=== PATIENT | female | born 1995 | race Caucasian/White ===

== ENCOUNTER 2023-05-01 12:42 | Emergency (ER) | payer OTHER, SELFPAY ==
--- NOTE | ~2023-05-01 | XR_ITS ---
EXAMINATION: XR chest 2V DATE: 05/01/2023 13:59 INDICATION: Cough and congestion TECHNIQUE: Frontal and lateral views of the chest are obtained COMPARISON: None available FINDINGS: The lungs are free of acute opacities. No pleural effusion or pneumothorax. The cardiomedia stinal silhouette is normal. The visualized bones and soft tissues are unremarkable. IMPRESSION: 1. No acute cardiopulmonary abnormality. Reviewed, dictated and finalized at location B. ER STOCK GRADER
[2023-05-01 12:54] VITALS: BP 127/83; PULSE 90; RESP 16; TEMP 37.1; O2SAT 100
--- NOTE | 2023-05-01 13:40 | ED.URI ---
HPI - URI/Sore Throat General Chief Complaint: Upper Respiratory Infection Stated Complaint: Chest Congestion Time Seen by Provider: 05/01/23 13:40 Source: patient, RN notes reviewed and old records reviewed Mode of arrival: ambulatory Limitations: no limitations History of Present Illness HPI Narrative: 27-year-old female presents to the [facility] with complaints of chest congestion. Reports negative COVID at home. Symtpoms started Thursday, 5 days ago Onset (ago): day(s) (5) Related Data Home Medications Medication Instructions Recorded Confirmed drospirenone 3 mg-estetrol 14.2 mg See Rx Instructions PO .COMPLEX 11/25/22 05/01/23 (28) tablet (Nextstellis) Allergies Allergy/AdvReac Type Severity Reaction Status Date / Time No Known Allergies Allergy Verified 05/01/23 13:02 Review of Systems Review of Systems: All systems reviewed & are unremarkable except as noted in HPI and below Constitutional: Constitutional: Reports no additional constitutional complaints Eyes: Eyes: Reports no additional eye complaints ENT: Reports system reviewed and no additional complaints, except as documented Cardiovascular: Cardiovascular: Reports no additional cardiovascular complaints, Denies chest pain and Denies dyspnea Respiratory: Respiratory: Reports as per HPI, Reports chest congestion, Reports cough and Reports dyspnea Gastrointestinal: Gastrointestinal: Reports no additional gastrointestinal complaints, Denies abdominal pain, Denies nausea and Denies vomiting Musculoskeletal: Musculoskeletal: Reports no additional musculoskeletal complaints Integumentary/Breasts: Skin/Breast: Reports system reviewed and no additional complaints, except as docu Neurologic: Reports system reviewed and no additional complaints, except as documented Psychiatric: Psychiatric: Reports no additional psychiatric complaints Allergic/Immunologic: Allergic/Immunologic: Reports no additional allergic/immunologic complaints [facility] Past Medical History Medical History Anxiety Depressed Surgical History Surgical History History of breast surgery [place] teeth extracted Family History Family History Mother Hypertension Depression Alcoholic Sibling Asthma Depression Anxiety Father Anxiety Depression Hypertension Grandparent Alcoholic Depression Anxiety Colon cancer Social History Social History Smoking status: Never smoker Alcohol intake: current Drinks per week: 3 Alcohol use details: weekly Substance use: current Substance use type: marijuana Lack of Transportation: No Lack of Food: Never True Current Housing: I Have Housing Concerned About Future Housing: No Difficulty Paying Gas/Electric Bills: No Difficulty Paying for Meds: No Currently Unemployed: No Education: Bachelor's Degree Difficulty w/ Childcare or Family Care: No Living arrangements: with friend(s) Occupation/Education: occupation Gender identity (if verbalized by the patient): Female Sexual Orientation (if Verbalized by the Patient): Straight or Heterosexual Comments At the time of my signature, I reviewed and agree with the nursing past medical, surgical, social, and family history. There is no relevant family history pertinent to the patient complaint. Exam Const: General: cooperative, healthy appearing, comfortable, no acute distress, well developed, alert and well nourished Nutritional Appearance: well nourished Orientation/consciousness: patient oriented x3 Limitations: no limitations HENMT: Head: normal to inspection Ears: hearing grossly normal bilaterally and external ears normal Face/Nose/Sinus: Normal external nose present, Normal nares present, Normal nasal mucous membranes
[2023-05-01] MEDS: IPRATROPIUM BR 0.02% INH SOLN 0.5 MG/2.5 ML VIAL INHALATION (13:58)
[2023-05-01] MEDS: ALBUTEROL SULFATE NEB 2.5 MG/3 ML INH INHALATION (13:58)
--- NOTE | 2023-05-01 14:18 | PC.NURSE ---
pt tolerated treatment well states felling much better at this time.
== END 2023-05-01 14:40 | disposition home or self-care (01) ==
PROVIDERS: Emergency Provider Nurse Practitioner; PCP Family Medicine
DX: J40 Bronchitis, not specified as acute or chronic (principal); F12.90 Cannabis use, unspecified, uncomplicated
CPT/HCPCS: 71046; 87804; 94640; 99213; G0463

== ENCOUNTER 2024-06-23 15:26 | Outpatient (CLI) | payer OTHER, SELFPAY ==
--- NOTE | ~2024-06-23 | US_ITS ---
EXAMINATION: US pelvic complete DATE: 06/23/2024 15:47 INDICATION: Abnormal uterine bleeding. TECHNIQUE: Multiple transabdominal sonographic images of the pelvis were obtained. COMPARISON: None. FINDINGS: The uterus measures 6.9 x 3.3 x 3.8 cm. There is no free fluid in the pelvis. The endometrial complex measures 4 mm in thickness. The right ovary measures 3.4 x 1.9 x 2.2 cm. The left ovary measures 1.7 x 2.7 x 1.7 cm. There is normal vascular flow in the ovaries. IMPRESSION: 1. Normal pelvis. Reviewed, dictated and finalized at location A. NUE MANAGER IMPRESSION: 1. Normal pelvis.
== END 2024-06-23 15:27 | disposition home or self-care (01) ==
LOC: MICIMG 15:28
PROVIDERS: PCP Family Medicine; Visit Provider Nurse Practitioner
DX: N93.8 Other specified abnormal uterine and vaginal bleeding (principal)
CPT/HCPCS: 76856

== ENCOUNTER 2024-10-31 01:28 | Day surgery (SDC) | payer OTHER, SELFPAY ==
--- NOTE | 2024-10-25 15:33 | SUR.PREOP ---
Report to the Outpatient Waiting Room, entrance under the green pavilion located off [facility], at time ___614____ on date ____10/31/24___. Planned Procedure Time: ____814____.? Time changes happen often and if your time is changed the preop area will call you the afternoon before. - You and your visitor will be asked to self-screen and do not enter if you have any COVID symptoms. Please call surgeon if you need to reschedule. - A mask is optional within the hospital at this time. Patients may have clear liquids (water, carbonated beverages, clear teas, apple juice) until 3 hours prior to surgery with a maximum of 20 ounces. - NO CLEAR LIQUIDS AFTER 0515 - No food from midnight until time of surgery and no smoking, or chewing tobacco (or any form of nicotine). No chewing gum, candy or mints. - Infants may have breast milk until 4 hours before surgery, infant formula 6 hours prior to surgery. - Children will be allowed to drink immediately following surgery.? If applicable, please bring a bottle or sippy cup to assist with drinking. Juice, water, soda, and popsicles are readily available.? For infants on formula, please bring formula the day of surgery.? Pacifiers are allowed. Take only the following medications with a SIP of water on the morning of surgery: KLONOPIN DO NOT STOP ANY OF YOUR OTHER PRESCRIPTION MEDICATIONS PRIOR TO SURGERY EXCEPT THE FOLLOWING Hold all vitamins and supplements for 3 days per anesthesiologist. Medications to discontinue per physician N/A Date to take last dose Please no make-up, nail french, hairspray, perfume, deodorant, or body powder the day of surgery.? No jewelry (including any body piercings) or valuables the day of surgery, leave them at home.? Please take a shower or bath the night before, or the morning of, surgery with an antibacterial soap.? Wear comfortable, loose fitting clothing.? Children are encouraged to wear pajamas. - Jewelry must be removed prior to entering the operating room.? Rings and piercings that are not removed may be cut off. - The hospital will not accept responsibility for valuables.? - Please leave all valuables, including medications, at home the day of surgery. If you are going home after surgery, a licensed tractor trailer moving van driver must drive you home.? - NO public transportation without another adult if you receive anesthesia. - We recommend that an adult stay with you for 24 hours following discharge. - We also recommend that you do not drive, make important decision, drink alcoholic beverages, or take any drugs that were not prescribed by your health care provider for at least 24 hours after your discharge time. For Pediatric surgeries, we recommend two adults accompany the child home. Follow any additional instructions given to you from your surgeon. Telephone instructions given to MARTI CELIS and asked if any additional questions and then verbalized understanding. Patient advised to call surgeon office or pre surgery nurse liaison [phone] if any additional questions.
[2024-10-25 15:49] VITALS: BMI 32.9
[2024-10-31 06:02] VITALS: BMI 33.2
[2024-10-31 06:15] VITALS: BP 117/75; PULSE 69; RESP 14; TEMP 36.3; O2SAT 100
[2024-10-31] MEDS: LACTATED RINGERS 1,000 ML 30 ML IV CONT (06:30)
[2024-10-31] MEDS: ACETAMINOPHEN 500 MG TABLET 1000 MG PO (06:35)
--- NOTE | 2024-10-31 06:43 | WPDANESEPPF ---
Anes - Initial Pre Proc Eval Procedure: Operation Date: 10/31/24 07:30 Proposed Procedures p Hysteroscopy Dilation and Curettage - Sariah Rodriguez MD Date/Time: 10/31/24 06:43 Surgeon: Sariah Rodriguez MD Pre Op Diagnosis: menorrhagia Patient Data Age: 29 Gender: F Height: 1.52 m Weight: 77.2 kg Last Vital Signs Temp 36.3 C L 10/31/24 06:15 Pulse 69 10/31/24 06:15 Resp 14 10/31/24 06:15 BP 117/75 10/31/24 06:15 Pulse Ox 100 10/31/24 06:15 O2 Del Method Room Air 10/31/24 06:15 Allergies Allergy/AdvReac Type Severity Reaction Status Date / Time No Known Allergies Allergy Verified 10/31/24 06:13 Home Medications ?Medication ?Instructions ?Recorded ?Confirmed ?Type buspirone 10 mg tablet 10 mg PO DAILY #90 tabs 07/25/24 10/31/24 Rx clonazepam 0.5 mg tablet (Klonopin) 0.5 mg PO DAILY PRN anxiety #30 09/02/24 10/31/24 Rx tabs sertraline 50 mg tablet 50 mg PO DAILY #90 tabs 09/02/24 10/31/24 Rx sertraline 100 mg tablet 100 mg PO DAILY #90 tabs 09/16/24 10/31/24 Rx vits no.130-ferrous fum 1 tablet PO DAILY 10/25/24 10/25/24 History 27 mg iron-folic acid 800 mcg tablet ( Vitamin) Patient hx anesthesia problems: none Family hx anesthesia problems: none Results Review: All pre-operative results and documents have been reviewed as part of the pre-operative evaluation. [facility] Past Medical History Medical History Depressed Anxiety Surgical History Surgical History [place] teeth extracted History of breast surgery Family History Family History Mother Hypertension Depression Alcoholic Sibling Asthma Depression Anxiety Father Anxiety Depression Hypertension Grandparent Alcoholic Depression Anxiety Colon cancer Social History Social History Smoking status: Never smoker Alcohol intake: current Drinks per week: 3 Alcohol use details: weekly Substance use: current Substance use type: marijuana Lack of Transportation: No Lack of Food: Never True Current Housing: I Have Housing Concerned About Future Housing: No Difficulty Paying Gas/Electric Bills: No Difficulty Paying for Meds: No Currently Unemployed: No Education: Bachelor's Degree Difficulty w/ Childcare or Family Care: No Living arrangements: with family Occupation/Education: occupation Gender identity (if verbalized by the patient): Female Sexual Orientation (if Verbalized by the Patient): Straight or Heterosexual Spiritual care concerns: No Anes - Eval Final PreProcedure Day of Procedure 10/31/24 06:43 Patient weight: obese Heart: regular rate and rhythm Lungs: clear to auscultation Airway: Mallampati scale class II Neurological: alert and oriented Last oral intake: >/= 8 hours ASA classification: III Emergent: no Anesthetic plan: proceed Anesthesia type and monitoring: general GIVS and standard monitoring Results Review: All pre-operative results and documents have been reviewed as part of the pre-operative evaluation. Informed Consent: The patient's anesthetic plan and its attendant risks and benefits were discussed with the patient/family/POA. Questions were solicited and answers provided to the satisfaction of the patient/family/POA.
[2024-10-31 07:04] LABS: BEDSIDEPREGUCG Negative (Negative)
--- NOTE | 2024-10-31 07:19 | WPDHPUPDATE1 ---
History and Physical Update Update Date/Time: 10/31/24 07:19 History and Physical has been reviewed, including an updated exam of the patient. There are NO changes in the patient's condition. Risks, benefits, and alternatives have been discussed and questions answered. Patient agrees to proceed with procedure.
--- NOTE | 2024-10-31 07:20 | PM.HPGS ---
History of Present Illness History of Present Illness Consent: Risks, benefits, and alternatives have been discussed and questions answered. Patient agrees to proceed with procedure. Chief complaint: menorrhagia Narrative: Kimberly Gresham is a 29 year old female with prolonged vaginal bleeding. It was recommended to undergo D&C hysteroscopy for further evaluation. Risks of infection, bleeding, and perforation are reviewed. Possible pathology is reviewed. Patient voices understanding and agrees to proceed. Review of Systems Review of Systems: not repeated day of surgery; patient states no changes in status PMFSH Past Medical History Medical History Depressed Anxiety Surgical History Surgical History [place] teeth extracted History of breast surgery Family History Family History Mother Hypertension Depression Alcoholic Sibling Asthma Depression Anxiety Father Anxiety Depression Hypertension Grandparent Alcoholic Depression Anxiety Colon cancer Social History Social History (Updated 10/31/24 @ 06:47 by Sarthak Darby DO) Smoking status: Never smoker Alcohol intake: current Drinks per week: 3 Alcohol use details: weekly Substance use: current Substance use type: marijuana Other substance usage details: daily Lack of Transportation: No Lack of Food: Never True Current Housing: I Have Housing Concerned About Future Housing: No Difficulty Paying Gas/Electric Bills: No Difficulty Paying for Meds: No Currently Unemployed: No Education: Bachelor's Degree Difficulty w/ Childcare or Family Care: No Living arrangements: with family Occupation/Education: occupation Gender identity (if verbalized by the patient): Female Sexual Orientation (if Verbalized by the Patient): Straight or Heterosexual Spiritual care concerns: No Meds Home Medications and Allergies Home Medications ?Medication ?Instructions ?Recorded ?Confirmed ?Type buspirone 10 mg tablet 10 mg PO DAILY #90 tabs 07/25/24 10/31/24 Rx clonazepam 0.5 mg tablet (Klonopin) 0.5 mg PO DAILY PRN anxiety #30 09/02/24 10/31/24 Rx tabs sertraline 50 mg tablet 50 mg PO DAILY #90 tabs 09/02/24 10/31/24 Rx sertraline 100 mg tablet 100 mg PO DAILY #90 tabs 09/16/24 10/31/24 Rx vits no.130-ferrous fum 1 tablet PO DAILY 10/25/24 10/25/24 History 27 mg iron-folic acid 800 mcg tablet ( Vitamin) Allergies Allergy/AdvReac Type Severity Reaction Status Date / Time No Known Allergies Allergy Verified 10/31/24 06:13 Vital Signs Vital Signs - 24 hr 10/31/24 06:15 Temperature 97.4 F L Pulse Rate 69 Respiratory Rate 14 Blood Pressure 117/75 Pulse Oximetry 100 Oxygen Delivery Room Air Exam Const: General: healthy appearing and alert Orientation/consciousness: patient oriented x3 Resp: Effort & Inspection: normal respiratory effort : External Female Exam: normal external appearance Speculum Exam - Vagina: normal appearance of the vagina and normal vaginal discharge Speculum Exam - Cervix: normal appearance of the cervix Bimanual exam- vagina & uterus: uterine size normal and consistency normal Bimanual Exam- Adnexa, other: normal adnexae and No adnexal tenderness Neuro: General: patient oriented x3 Assessment and Plan Assessment and plan (1) Menorrhagia: Code(s): N92.0 - Excessive and frequent menstruation with regular cycle Status: Acute Assessment and Plan: Proceed with D&C hysteroscopy
--- NOTE | 2024-10-31 07:45 | S_PTH ---
PATIENT: Kimberly Gresham LOC: [facility] U#:[id number] AGE/SX: 29/F ROOM: RE10/31/[address]: Sariah Rodriguez MD : 1995 BED: DIS: 10/31/2024 SPEC #: [id number] RECD: 10/31/24 09:33 STATUS: RODY REQ #: [id number] ANABEL: 10/31/24 07:[address]: Sariah Rodriguez DEPT: [facility] Surgical RECD BY: Evelia Dobbins ENTERED: 10/31/24 09:33 SP TYPE: Surgical OTHR DR: Glenna UnderwoodMD Tissues: A - Endometrial Curettings Procedures: Hematoxylin and Eosin Stain Gross and Microscopic Level 4
--- NOTE | 2024-10-31 07:51 | W.PM.PROC2 ---
Procedure Note - Detailed Date of Procedure 10/31/24 Pre-op Diagnosis menorrhagia Post-op Diagnosis Same Procedure Performed D&C hysteroscopy Surgeon Sariah Rodriguez MD Anesthesia MAC Findings Uterus sounds to 7cm and appears grossly normal Description of Procedure The patient was taken to the operating room and placed under anesthesia in the dorsal lithotomy position. She was prepped and draped in usual sterile fashion. [place] speculum was placed in the vagina and the cervix was grasped on the anterior lip with a tenaculum. The uterus is sounded to 7cm. The diagnostic hysteroscope was placed and shedding endometrium was noted otherwise appears grossly normal. Hysteroscope was removed. The endometrium was sharply curetted until a good uterine cry was noted in all areas. Instruments are removed. The patient was awakened from anesthesia and taken to recovery in stable condition. Sponge, needle, and instrument counts are correct per the OR staff. Estimated Blood Loss 5 Drains No Packing No Pathology Yes (Endometrial curettings) Complications No immediate complications Condition Stable Disposition PACU
[2024-10-31 07:54] VITALS: BP 110/68; PULSE 67; RESP 14; O2SAT 100
[2024-10-31 08:15] VITALS: BP 110/61; PULSE 67; RESP 14; O2SAT 95
[2024-10-31 08:45] VITALS: BP 116/70; PULSE 57; RESP 14
== END 2024-10-31 08:51 | disposition home or self-care (01) ==
PROVIDERS: PCP Family Medicine; Visit Provider Obstetrics & Gynecology Gynecology
PROC: 0U5B8ZZ Destruction of Endometrium, Via Natural or Artificial Opening Endoscopic (ICD-10-PCS; CPT 58563; principal; 2024-10-31 07:30)
DX: N92.0 Excessive and frequent menstruation with regular cycle (principal); F12.90 Cannabis use, unspecified, uncomplicated; E66.9 Obesity, unspecified; Z68.33 Body mass index [BMI] 33.0-33.9, adult
CPT/HCPCS: 58558; 88305; A9270; J2003; J2250; J2405; J2704; J3010; J7120